=== PATIENT | female | born 1995 | race Caucasian/White ===

== ENCOUNTER 2017-04-16 08:34 | Emergency (ER) | payer BC, OTHER ==
[2017-04-16 08:57] VITALS: BP 130/68
--- NOTE | 2017-04-16 09:02 | EDM.PDOC ---
ED HPI GENERAL MEDICAL PROBLEM - General Chief Complaint: Upper Extremity Injury/Pain Stated Complaint: HURT RT ARM/SHOULDER AREA, LEFT ARM Time Seen by Provider: 04/16/17 08:40 Source of Information: Reports: Patient History Limitations: Reports: No Limitations - History of Present Illness INITIAL COMMENTS - FREE TEXT/NARRATIVE: This 21 yo female patient reports to the ED with generalized aches and pains. The patient reports she is currently experiencing lower back pain, pain in her left forearm and radiating pain to her upper back. The patient reports she is also 14 weeks into her current . The patient reports she was lifting heavy bags of garbage over the weekend and did the laundry over the weekend. The patient reports that she has noticed cramping in her right hand (4th and 5th digits) since yesterday. The patient reports she has been nauseated and vomiting due to her . The patient has not taken anything for her current symptoms. Onset: Gradual Onset Date: 04/14/17 Duration: Constant, Getting Worse Location: Reports: Back, Upper Extremity, Left Quality: Reports: Ache, Dull, Other (cramping) Severity: Moderate Improves with: Reports: None Worsens with: Reports: Movement Context: Reports: Activity Associated Symptoms: Reports: Nausea/Vomiting (due to ) - Related Data Allergies Allergy/AdvReac Type Severity Reaction Status Date / Time No Known Allergies Allergy Verified 04/23/15 09:52 Home Meds: Home Meds PNV95/Ferrous Fumarate/FA [ Tablet] 1 tab PO DAILY 01/22/15 [History] Past Medical History - Past Health History Medical/Surgical History: Denies Medical/Surgical History Social & Family History - Tobacco Use Smoking Status *Q: Never Smoker Second Hand Smoke Exposure: No - Alcohol Use Days Per Week of Alcohol Use: 0 - Recreational Drug Use Recreational Drug Use: No Review of Systems - Review of Systems Review Of Systems: ROS reveals no pertinent complaints other than HPI. ED EXAM, GENERAL - Physical Exam Exam: See Below Exam Limited By: No Limitations General Appearance: Alert, WD/WN, Moderate Distress Eye Exam: Bilateral Eye: EOMI, Normal Inspection, PERRL Ears: Normal External Exam, Normal Canal, Hearing Grossly Normal, Normal TMs Nose: Normal Inspection, Normal Mucosa, No Blood Throat/Mouth: Normal Inspection, Normal Lips, Normal Teeth, Normal Gums, Normal Oropharynx, Normal Voice, No Airway Compromise Head: Atraumatic, Normocephalic Neck: Normal Inspection, Supple, Non-Tender, Full Range of Motion Respiratory/Chest: No Respiratory Distress, Lungs Clear, Normal Breath Sounds, No Accessory Muscle Use, Chest Non-Tender Cardiovascular: Normal Peripheral Pulses, Regular Rate, Rhythm, No Edema, No Gallop, No JVD, No Murmur, No Rub GI/Abdominal: Normal Bowel Sounds, Soft, Non-Tender, No Organomegaly, No Distention, No Abnormal Bruit, No Mass (Female) Exam: Deferred Rectal (Female) Exam: Deferred Back Exam: Decreased Range of Motion, Paraspinal Tenderness Extremities: Normal Inspection, Normal Range of Motion, Non-Tender, Normal Capillary Refill, No Pedal Edema Neurological: Alert, Oriented, CN II-XII Intact, Normal Cognition, Normal Gait, Normal Reflexes, No Motor/Sensory Deficits Psychiatric: Normal Affect, Normal Mood Skin Exam: Warm, Dry, Intact, Normal Color, No Rash Lymphatic: No Adenopathy Course - Vital Signs Last Recorded V/S: Last Vital Signs Temp 37.1 C 04/16/17 08:43 Pulse 92 04/16/17 08:43 Resp 16 04/16/17 08:43 BP 130/68 04/16/17 08:43 Pulse Ox 100 04/16/17 08:43 - Orders/Labs/Meds Labs: Laboratory Tests 04/16/17 04/16/17 Range/Units 08:58 08:58 WBC 11.5 H (5.0-10.0) 10^3/uL RBC 3.98 L (4.2-5.4) 10^6/uL Hgb 12.5 (12.0-16.0) g/dL Hct 36.7 L (37.0-47.0) % MCV 92.2 (80-100) fL MCH 31.4 (27.0-34.0) pg MCHC 34.1 (33.0-35.0) g/dL Plt Count 251 (150-450) 10^3/uL Neut % (Auto) 81.6 H (42.2-75.2) % Lymph % (Auto) 10.3 L (20.5-50.1) % [place] % (Auto) 7.4 (2-8) % Eos % (Auto) 0.5 L (1.0-3.0) % Baso % (Auto) 0.2 (0.0-1.0) % Sodium 133 L (135-145) mmol/L Potassium 3.9 (3.6-5.0) mmol/L Chloride 102 (101-111) mmol/L Carbon Dioxide 21.0 (21.0-31.0) mmol/L Anion Gap 13.9 BUN 11 (7-18) mg/dL Creatinine 0.6 (0.6-1.3) mg/dL Est Cr Clr Drug Dosing TNP Estimated GFR (MDRD) > 60 BUN/Creatinine Ratio 18.33 Glucose 90 (74-105) mg/dL Calcium 8.9 (8.4-10.2) mg/dl Total Bilirubin 0.5 (0.2-1.0) mg/dL AST 16 (10-42) IU/L ALT 14 (10-60) IU/L Alkaline Phosphatase 34 L (42-121) IU/L Total Protein 6.9 (6.7-8.2) g/dl Albumin 3.7 (3.2-5.5) g/dl Globulin 3.2 Albumin/Globulin Ratio 1.16 Departure - Departure Time of Disposition: 09:28 Disposition: Home, Self-Care 01 Condition: Fair Clinical Impression: Strain of muscle, fascia and tendon of lower back, initial encounter - Discharge Information Instructions: Back Pain, Adult, [id number], Muscle Strain, [id number] Forms: ED Department Discharge Care Plan Goals: The patient was advised of the examination and lab results during the visit. The patient was encouraged to take Tylenol as directed for temporary symptom relief. The patient was encouraged to use good body mechanics to avoid lifting and twisting with her back. If the patient has any additional symptoms or concerns, the patient should follow-up with her primary care facility or return to the emergency department.
[2017-04-16 09:24] LABS: CHLORIDE,CL 102 mmol/L (101-111); SODIUM,NA 133 mmol/L (135-145)
== END 2017-04-16 09:36 | disposition home or self-care (01) ==
LOC: DL.ED 08:34
DX: O9A.211 Injury, poisoning and certain other consequences of external causes complicating pregnancy, first trimester (principal); S39.012A Strain of muscle, fascia and tendon of lower back, initial encounter; X50.0XXA Overexertion from strenuous movement or load, initial encounter; Z3A.14 14 weeks gestation of pregnancy
CPT/HCPCS: 36415; 80053; 85025; 99283

== ENCOUNTER 2020-05-29 17:23 | Emergency (ER) | payer SELFPAY ==
[2020-05-29] MEDS ORDERED: Ondansetron 4 MG Tab.DIS PO ONE (17:24)
[2020-05-29 17:47] VITALS: BP 137/97; PULSE 99
--- NOTE | 2020-05-29 18:11 | EDM.PDOC ---
<RavinkenzieJoseian - Last Filed: 05/29/20 18:33> ED HPI GENERAL MEDICAL PROBLEM - General Chief Complaint: Gastrointestinal Problem Stated Complaint: VOMITTING, UNABLE TO KEEP ANYTHING DOWN. [id number]* Time Seen by Provider: 05/29/20 17:55 - Related Data Allergies Allergy/AdvReac Type Severity Reaction Status Date / Time No Known Allergies Allergy Verified 05/29/20 17:34 Home Meds: Home Meds Meclizine [Antivert] 12.5 mg PO TID PRN #12 tab 05/29/20 [Rx] Metoclopramide HCl [Reglan] 10 mg PO Q4H PRN #20 tablet 05/29/20 [Rx] Course - Re-Assessments/Exams Free Text/Narrative Re-Assessment/Exam: 05/29/20 18:33 I saw and evaluated the patient. Discussed with resident and agree with residents findings and plan as documented in the residents note. Departure - Departure Disposition: Home, Self-Care 01 Clinical Impression: Right temporal headache, Dehydration Nausea & vomiting Qualifiers: Vomiting type: unspecified Vomiting Intractability: non-intractable Qualified Code(s): R11.2 - Nausea with vomiting, unspecified - Discharge Information Instructions: Nausea and Vomiting, Adult, Dehydration, Adult, Form - Headache Record Forms: ED Department Discharge Additional Instructions: Use nausea medication (metoclopramide) as needed. Use meclizine at first sign of dizziness. Maintain hydration, drink lots of water. You may alternate 1000 mg Tylenol every hours and 800 mg ibuprofen every 6 hours as needed for headache. Recommend you follow up with your primary care physician. Contact your PCP or return to the emergency department if symptoms return. If you have any loss of vision or blurred/double vision, contact the ED. <Emerson Alexander - Last Filed: 05/29/20 20:13> ED HPI GENERAL MEDICAL PROBLEM - General Source of Information: Reports: Patient History Limitations: Reports: No Limitations - History of Present Illness INITIAL COMMENTS - FREE TEXT/NARRATIVE: Patient is a 24 y/o female who presents to the ED today complaining of headache, vomiting, and vaginal bleeding (spotting). Patient reports onset of headache three days ago. Headache is located over the right scientology/frontal area. She denies any visual changes or photophobia. She denies any loss of vision in the right eye. There is no associated aura. She does have some dizziness if she changes position too quickly. She had an onset of spotting this morning, red blood. LMP was 05/17 (first day). She is sexually active, not on control. Last sexual encounter 2-3 days ago. Spotting is less than a regular period. She does not have a history of midcycle bleeding or irregular cycles. Today she developed nausea and vomiting and is currently unable to keep anything down. She denies any abdominal pain. She reports some sinus congestion which occurred last week with some associated rhinorrhea. Denies any other respiratory symptoms. She tried Benadryl, Sudafed, Tylenol, and ibuprofen all without relief of the headache. She denies any history of migraine but does have a long history of severe intermittent headaches, states she's undergone workup with neurology and has tried different migraine medications which were ineffective. 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 ED EXAM, GI/ABD - Physical Exam Exam: See Below General Appearance: Alert, WD/WN, Mild Distress Eyes: Bilateral: Normal Appearance, EOMI Nose: Normal Inspection. No: Nasal Drainage, Clear Rhinorrhea Throat/Mouth: Normal Inspection, Normal Lips, Normal Teeth, Normal Gums, Normal Oropharynx, Normal Voice, No Airway Compromise Head: Atraumatic, Normocephalic, Facial Tenderness (Tenderness over right scientology.). No: Sinus Tenderness Neck: Normal Inspection, Supple, Non-Tender, Full Range of Motion Respiratory/Chest: No Respiratory Distress, Lungs Clear, Normal Breath Sounds, No Accessory Muscle Use Cardiovascular: Normal Peripheral Pulses, Regular Rate, Rhythm, No Edema, No Gallop, No Murmur, No Rub GI/Abdominal Exam: Normal Bowel Sounds, Soft, Non-Tender, No Organomegaly, No Distention, No Mass. No: Guarding (Female) Exam: Normal External Exam, Normal Speculum Exam. No: Cervical Discharge, Cervical Lesions, Vaginal Bleeding, Vaginal Discharge, Vaginal Lesions, Vaginal Tears Back Exam: Normal Inspection. No: CVA Tenderness (L), CVA Tenderness (R), Vertebral Tenderness Extremities: Normal Inspection, Non-Tender, No Pedal Edema Neurological: Alert, Oriented, CN II-XII Intact, Normal Cognition, Normal Gait, Normal Reflexes, No Motor/Sensory Deficits Psychiatric: Normal Affect, Normal Mood Skin Exam: Warm, Dry, Intact Course - Vital Signs Last Recorded V/S: Last Vital Signs Temp 98.4 F 05/29/20 17:28 Pulse 99 05/29/20 17:28 Resp 18 05/29/20 17:28 BP 137/97 H 05/29/20 17: Pulse Ox 99 05/29/20 17:28 - Orders/Labs/Meds Labs: Laboratory Tests 05/29/20 05/29/20 05/29/20 Range/Units 18:04 18:10 18:10 WBC 9.1 (5.0-10.0) 10^3/uL RBC 4.35 (4.2-5.4) 10^6/uL Hgb 13.2 (12.0-16.0) g/dL Hct 39.9 (37.0-47.0) % MCV 91.7 (80-100) fL MCH 30.3 (27.0-34.0) pg MCHC 33.1 (33.0-35.0) g/dL Plt Count 272 (150-450) 10^3/uL Neut % (Auto) 79.2 H (42.2-75.2) % Lymph % (Auto) 13.8 L (20.5-50.1) % [place] % (Auto) 5.8 (2-8) % Eos % (Auto) 1.0 (1.0-3.0) % Baso % (Auto) 0.2 (0.0-1.0) % ESR (0-20) mm/hr Sodium 141 (136-145) mmol/L Potassium 4.2 (3.5-5.1) mmol/L Chloride 103 (98-107) mmol/L Carbon Dioxide 27 (21-32) mmol/L Anion Gap 15.2 H (7-13) mEq/L BUN 14 (7-18) mg/dL Creatinine 0.90 (0.55-1.02) mg/dL Est Cr Clr Drug Dosing 81.80 mL/min Estimated GFR (MDRD) > 60 BUN/Creatinine Ratio 15.6 (No establ ref range) Glucose 112 H (74-99) mg/dL Calcium 8.8 (8.5-10.1) mg/dL Total Bilirubin 0.4 (0.2-1.0) mg/dL AST 15 (15-37) U/L ALT 30 (14-59) U/L Alkaline Phosphatase 72 (46-116) U/L Total Protein 7.6 (6.4-8.2) g/dL Albumin 4.1 (3.4-5.0) g/dL Globulin 3.5 Albumin/Globulin Ratio 1.2 HCG, Qual Negative Urine Color Yellow (YELLOW) Urine Appearance Slightly cloudy (CLEAR) Urine pH 7.0 (5.0-9.0) Ur Specific [place] 1.025 (1.005-1.030) Urine Protein Trace H (NEGATIVE) Urine Glucose (UA) Negative (NEGATIVE) Urine Ketones 80 H (NEGATIVE) Urine Occult Blood Small H (NEGATIVE) Urine Nitrite Negative (NEGATIVE) Urine Bilirubin Negative (NEGATIVE) Urine Urobilinogen 0.2 (0.2-1.0) mg/dL Ur Leukocyte Esterase Negative (NEGATIVE) Urine RBC 40-50 H /HPF Urine WBC 0-5 (0-5/HPF) /HPF Ur Epithelial Cells Many H (NOT SEEN) /HPF Amorphous Sediment Few (NOT SEEN) /HPF Urine Bacteria Moderate H (0-FEW/HPF) /HPF Urine Mucus Few H (NOT SEEN) /LPF 05/29/20 Range/Units 18:10 WBC (5.0-10.0) 10^3/uL RBC (4.2-5.4) 10^6/uL Hgb (12.0-16.0) g/dL Hct (37.0-47.0) % MCV (80-100) fL MCH (27.0-34.0) pg MCHC (33.0-35.0) g/dL Plt Count (150-450) 10^3/uL Neut % (Auto) (42.2-75.2) % Lymph % (Auto) (20.5-50.1) % [place] % (Auto) (2-8) % Eos % (Auto) (1.0-3.0) % Baso % (Auto) (0.0-1.0) % ESR 16 (0-20) mm/hr Sodium (136-145) mmol/L Potassium (3.5-5.1) mmol/L Chloride (98-107) mmol/L Carbon Dioxide (21-32) mmol/L Anion Gap (7-13) mEq/L BUN (7-18) mg/dL Creatinine (0.55-1.02) mg/dL Est Cr Clr Drug Dosing mL/min Estimated GFR (MDRD) BUN/Creatinine Ratio (No establ ref range) Glucose (74-99) mg/dL Calcium (8.5-10.1) mg/dL Total Bilirubin (0.2-1.0) mg/dL AST (15-37) U/L ALT (14-59) U/L Alkaline Phosphatase (46-116) U/L Total Protein (6.4-8.2) g/dL Albumin (3.4-5.0) g/dL Globulin Albumin/Globulin Ratio HCG, Qual Urine Color (YELLOW) Urine Appearance (CLEAR) Urine pH (5.0-9.0) Ur Specific [place] (1.005-1.030) Urine Protein (NEGATIVE) Urine Glucose (UA) (NEGATIVE) Urine Ketones (NEGATIVE) Urine Occult Blood (NEGATIVE) Urine Nitrite (NEGATIVE) Urine Bilirubin (NEGATIVE) Urine Urobilinogen (0.2-1.0) mg/dL Ur Leukocyte Esterase (NEGATIVE) Urine RBC /HPF Urine WBC (0-5/HPF) /HPF Ur Epithelial Cells (NOT SEEN) /HPF Amorphous Sediment (NOT SEEN) /HPF Urine Bacteria (0-FEW/HPF) /HPF Urine Mucus (NOT SEEN) /LPF Meds: Medications Discontinued Medications Generic Name Dose Route Start Last Admin Trade Name Freq PRN Reason Stop Dose Admin Lactated Ringer's 1,000 mls @ 999 mls/hr 05/29/20 18:46 05/29/20 19:02 Ringers, Lactated IV 05/29/20 19:46 999 mls/hr .BOLUS ONE Administration Ketorolac Tromethamine 30 mg 05/29/20 18:47 05/29/20 19:07 Toradol IVPUSH 05/29/20 18:48 30 mg ONETIME ONE Administration Meclizine HCl 12.5 mg 05/29/20 18:47 05/29/20 19:20 Antivert PO 05/29/20 18:48 12.5 mg ONETIME ONE Administration Metoclopramide HCl 10 mg 05/29/20 18:47 05/29/20 19:03 Reglan IVPUSH 05/29/20 18:48 10 mg ONETIME ONE Administration - Re-Assessments/Exams Free Text/Narrative Re-Assessment/Exam: 05/29/20 18:45 Patient rechecked, informed of negative serum . She reports continued nausea, has vomited a few times in the unit. She states symptoms are manageable if lying completely still. If she moves she feels that the room is 'tilting.' IV started, will admin IVF along with Reglan and Toradol. PO dose of Meclizine. ESR still pending. Free Text/Narrative Re-Assessment/Exam: 05/29/20 19:27 Patient reports symptomatic relief following admin of Reglan and Toradol. IVF infusing. Discussed indication for pelvic exam given unexplained vaginal spotting. Patient consents to exam. Plan to obtain wet prep. Free Text/Narrative Re-Assessment/Exam: 05/29/20 19:55 Discussed results of remainder of workup. ESR negative, wet prep negative. Patient is feeling well enough for discharge. Discussed discharge planning with prescriptions for anti-nausea and vertigo meds. Departure - Departure Time of Disposition: 19:55 Condition: Good - Discharge Information *PRESCRIPTION DRUG MONITORING PROGRAM REVIEWED*: Not Applicable *COPY OF PRESCRIPTION DRUG MONITORING REPORT IN PATIENT AUTUMN: Not Applicable Sepsis Event Note (ED) - Evaluation Sepsis Screening Result: No Definite Risk - Focused Exam Vital Signs: Vital Signs Temp Pulse Resp BP Pulse Ox 05/29/20 17:28 98.4 F 99 18 137/97 H 99 - Assessment/Plan Assessment:: Symptoms suggestive of vertigo syndrome (nausea, vomiting, dizziness, room spinning), along with temporal headache. Labs suggestive of dehydration. Vaginal bleeding likely unrelated, pelvic exam normal and wet prep negative. Patient with good relief of symptoms following medications and IVF in the unit. Ruled out serious electrolyte abnormality, urinary and vaginal infections, , and temporal arteritis. Plan: Patient is discharged to home with prescriptions for Reglan and meclizine. Recommended she follow up with PCP in the near future to address the occurrence of this problem. Discussed return criteria, red flag symptoms. She voices understanding and agreement with this plan. She is discharged home in stable condition.
[2020-05-29 18:37] LABS: ANION GAP 15.2 mEq/L (7-13); CHLORIDE,CL 103 mmol/L (98-107); SODIUM,NA 141 mmol/L (136-145)
[2020-05-29] MEDS ORDERED: Lactated Ringers 1,000 ML IV ONE (18:46)
[2020-05-29] MEDS ORDERED: Metoclopramide 10 MG/2 ML SDV IVPUSH ONE (18:47)
[2020-05-29] MEDS ORDERED: Meclizine 12.5 MG Tab PO ONE (18:47)
[2020-05-29] MEDS ORDERED: Ketorolac 30 MG/ML SDV IVPUSH ONE (18:47)
[2020-05-29] MEDS ORDERED: Ondansetron 4 MG Tab.DIS ONE (20:08)
== END 2020-05-29 20:14 | disposition home or self-care (01) ==
LOC: DL.ED 17:23
DX: E86.0 Dehydration (principal); R11.2 Nausea with vomiting, unspecified; R51.9 Headache, unspecified; N93.9 Abnormal uterine and vaginal bleeding, unspecified
CPT/HCPCS: 36415; 80053; 81001; 84703; 85025; 85651; 87210; 96361; 96374; 96375; 99284; A9270; J1885; J2765; J7120; 99283

== ENCOUNTER 2021-05-19 08:12 | Emergency (ER) | payer OTHER ==
[2021-05-19] MEDS ORDERED: Sodium Chloride 0.9% 1,000 ML IV ONE (08:21)
[2021-05-19] MEDS ORDERED: Ondansetron 4 MG/2 ML SDV IV ONE (08:21)
[2021-05-19 08:26] VITALS: BP 127/83; PULSE 97
[2021-05-19 09:11] LABS: ANION GAP 14.7 mEq/L (7-13); CHLORIDE,CL 101 mmol/L (98-107); SODIUM,NA 137 mmol/L (136-145)
--- NOTE | 2021-05-19 09:49 | EDM.PDOC ---
ED HPI GENERAL MEDICAL PROBLEM - General Chief Complaint: Gastrointestinal Problem Stated Complaint: NAUSUA, HEAD PRESSURE, EAR ACHE LAST 3 OR 4 DAYS Time Seen by Provider: 05/19/21 08:40 Source of Information: Reports: Patient, RN, RN Notes Reviewed History Limitations: Reports: No Limitations - History of Present Illness INITIAL COMMENTS - FREE TEXT/NARRATIVE: Patient is a 25-year-old female who presents to ER with complaint of headache on and off, nausea and vomiting for the past 3 to 4 days. Patient states she is 22 weeks gestation. Patient states when she does have a headache it becomes intense and she is unable to sleep, patient begins to have pain in her ears when the headache comes, does sometimes feel congested at that time. Patient states when she has the headache she is unable to keep any food or drink down, has severe nausea and vomiting. Patient has not seen her primary care provider. Patient states she has been feeling good movement from baby. Denies cough or fever, denies diarrhea. 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 Onset: Gradual Onset Date: 05/15/21 Headache Pain Score (Numeric/FACES): 5 - Related Data Allergies Allergy/AdvReac Type Severity Reaction Status Date / Time No Known Allergies Allergy Verified 05/19/21 08:22 Home Meds: Home Meds Meclizine [Antivert] 12.5 mg PO TID PRN #12 tab 05/29/20 [Rx] Metoclopramide HCl [Reglan] 10 mg PO Q4H PRN #20 tablet 05/29/20 [Rx] Vits #93/Iron Fum/FA [ Formula Tablet] 1 tab PO DAILY 05/12/21 [History] Past Medical History - Past Health History Medical/Surgical History: Denies Medical/Surgical History HEENT History: Reports: Sinusitis, Other (See Below) Other HEENT History: Sikes teeth removed Cardiovascular History: Reports: None Respiratory History: Reports: None Gastrointestinal History: Reports: None Genitourinary History: Reports: None AWAKE OVERNIGHT COUNSELOR History: Reports: Other AWAKE OVERNIGHT COUNSELOR History: MASON 09/18/21 Musculoskeletal History: Reports: None Neurological History: Reports: None Psychiatric History: Reports: None Endocrine/Metabolic History: Reports: None Hematologic History: Reports: None Immunologic History: Reports: None Oncologic (Cancer) History: Reports: None Dermatologic History: Reports: None - Infectious Disease History Infectious Disease History: Reports: Chicken Pox - Past Surgical History Head Surgeries/Procedures: Reports: None Female Surgical History: Reports: Other (See Below) Other Female Surgeries/Procedures: ovarian cysts Social & Family History - Family History Family Medical History: No Pertinent Family History - Tobacco Use Tobacco Use Status *Q: Never Tobacco User - Caffeine Use Caffeine Use: Reports: Coffee, Energy Drinks, Soda, Tea Other Caffeine Use: once a week - Recreational Drug Use Recreational Drug Use: No ED ROS GENERAL - Review of Systems Review Of Systems: Comprehensive ROS is negative, except as noted in HPI. ED EXAM, GENERAL - Physical Exam Exam: See Below Exam Limited By: No Limitations General Appearance: Alert, WD/WN, No Apparent Distress Eye Exam: Bilateral Eye: EOMI, Normal Inspection Ears: Normal External Exam, Normal Canal, Hearing Grossly Normal, Normal TMs Nose: Normal Inspection Throat/Mouth: Normal Inspection, Normal Voice, No Airway Compromise Head: Atraumatic, Normocephalic Neck: Normal Inspection, Supple, Non-Tender, Full Range of Motion Respiratory/Chest: No Respiratory Distress, Lungs Clear, Normal Breath Sounds, No Accessory Muscle Use, Chest Non-Tender Cardiovascular: Normal Peripheral Pulses, Regular Rate, Rhythm, No Edema, No Gallop, No JVD, No Murmur, No Rub Peripheral Pulses: 2+: Radial (L), Radial (R) GI/Abdominal: Normal Bowel Sounds, Soft, Non-Tender (Female) Exam: Deferred Rectal (Female) Exam: Deferred Back Exam: Normal Inspection, Full Range of Motion, NT Extremities: Normal Inspection, Normal Range of Motion, Non-Tender, Normal Capillary Refill, No Pedal Edema Neurological: Alert, Oriented, CN II-XII Intact, Normal Cognition, Normal Gait, Normal Reflexes, No Motor/Sensory Deficits Psychiatric: Normal Affect, Normal Mood Skin Exam: Warm, Dry, Intact, Normal Color, No Rash Lymphatic: No Adenopathy Course - Vital Signs Last Recorded V/S: Last Vital Signs Temp 98.1 F 05/19/21 08:22 Pulse 97 05/19/21 08:22 Resp 20 05/19/21 08:22 BP 127/83 05/19/21 08:22 Pulse Ox 97 05/19/21 08:22 - Orders/Labs/Meds Orders: Active Orders 24 hr Category Date Time Status CULTURE URINE [RM] Stat Lab 05/19/21 08:23 Received Labs: Laboratory Tests 05/19/21 05/19/21 05/19/21 Range/Units 08:23 08:33 08:33 WBC 8.0 (5.0-10.0) 10^3/uL RBC 4.01 L (4.2-5.4) 10^6/uL Hgb 12.4 (12.0-16.0) g/dL Hct 37.1 (37.0-47.0) % MCV 92.5 (80-100) fL MCH 30.9 (27.0-34.0) pg MCHC 33.4 (33.0-35.0) g/dL Plt Count 260 (150-450) 10^3/uL Neut % (Auto) 77.5 H (42.2-75.2) % Lymph % (Auto) 14.2 L (20.5-50.1) % Mckean % (Auto) 6.3 (2-8) % Eos % (Auto) 1.9 (1.0-3.0) % Baso % (Auto) 0.1 (0.0-1.0) % Sodium 137 (136-145) mmol/L Potassium 3.7 (3.5-5.1) mmol/L Chloride 101 (98-107) mmol/L Carbon Dioxide 25 (21-32) mmol/L Anion Gap 14.7 H (7-13) mEq/L BUN 7 (7-18) mg/dL Creatinine 0.66 (0.55-1.02) mg/dL Est Cr Clr Drug Dosing 110.56 mL/min Estimated GFR (MDRD) > 60 BUN/Creatinine Ratio 10.6 (No establ ref range) Glucose 94 (70-99) mg/dL Calcium 8.7 (8.5-10.1) mg/dL Total Bilirubin 0.2 (0.2-1.0) mg/dL AST 12 L (15-37) U/L ALT 19 (14-59) U/L Alkaline Phosphatase 57 (46-116) U/L Total Protein 6.7 (6.4-8.2) g/dL Albumin 3.0 L (3.4-5.0) g/dL Globulin 3.7 Albumin/Globulin Ratio 0.81 Urine Color Yellow (YELLOW) Urine Appearance Slightly cloudy (CLEAR) Urine pH 8.5 (5.0-9.0) Ur Specific [place] 1.025 (1.005-1.030) Urine Protein Negative (NEGATIVE) Urine Glucose (UA) Negative (NEGATIVE) Urine Ketones Negative (NEGATIVE) Urine Occult Blood Negative (NEGATIVE) Urine Nitrite Negative (NEGATIVE) Urine Bilirubin Negative (NEGATIVE) Urine Urobilinogen 0.2 (0.2-1.0) mg/dL Ur Leukocyte Esterase Trace H (NEGATIVE) Urine RBC 0-5 (0-5) /HPF Urine WBC 0-5 (0-5/HPF) /HPF Ur Epithelial Cells Moderate H (NOT SEEN) /HPF Urine Bacteria Moderate H (0-FEW/HPF) /HPF SARS-CoV-2 RNA (HOMERO) (NEGATIVE) 05/19/21 Range/Units 08:52 WBC (5.0-10.0) 10^3/uL RBC (4.2-5.4) 10^6/uL Hgb (12.0-16.0) g/dL Hct (37.0-47.0) % MCV (80-100) fL MCH (27.0-34.0) pg MCHC (33.0-35.0) g/dL Plt Count (150-450) 10^3/uL Neut % (Auto) (42.2-75.2) % Lymph % (Auto) (20.5-50.1) % Mckean % (Auto) (2-8) % Eos % (Auto) (1.0-3.0) % Baso % (Auto) (0.0-1.0) % Sodium (136-145) mmol/L Potassium (3.5-5.1) mmol/L Chloride (98-107) mmol/L Carbon Dioxide (21-32) mmol/L Anion Gap (7-13) mEq/L BUN (7-18) mg/dL Creatinine (0.55-1.02) mg/dL Est Cr Clr Drug Dosing mL/min Estimated GFR (MDRD) BUN/Creatinine Ratio (No establ ref range) Glucose (70-99) mg/dL Calcium (8.5-10.1) mg/dL Total Bilirubin (0.2-1.0) mg/dL AST (15-37) U/L ALT (14-59) U/L Alkaline Phosphatase (46-116) U/L Total Protein (6.4-8.2) g/dL Albumin (3.4-5.0) g/dL Globulin Albumin/Globulin Ratio Urine Color (YELLOW) Urine Appearance (CLEAR) Urine pH (5.0-9.0) Ur Specific [place] (1.005-1.030) Urine Protein (NEGATIVE) Urine Glucose (UA) (NEGATIVE) Urine Ketones (NEGATIVE) Urine Occult Blood (NEGATIVE) Urine Nitrite (NEGATIVE) Urine Bilirubin (NEGATIVE) Urine Urobilinogen (0.2-1.0) mg/dL Ur Leukocyte Esterase (NEGATIVE) Urine RBC (0-5) /HPF Urine WBC (0-5/HPF) /HPF Ur Epithelial Cells (NOT SEEN) /HPF Urine Bacteria (0-FEW/HPF) /HPF SARS-CoV-2 RNA (HOMERO) Negative (NEGATIVE) Meds: Medications Discontinued Medications Generic Name Dose Route Start Last Admin Trade Name Dieudonneq PRN Reason Stop Dose Admin Sodium Chloride 1,000 mls @ 999 mls/hr 05/19/21 08:21 05/19/21 08:36 Normal Saline IV 05/19/21 09:21 999 mls/hr .BOLUS ONE Administration Ondansetron HCl 4 mg 05/19/21 08:21 05/19/21 08:40 Ondansetron 4 Mg/2 Ml Sdv IV 05/19/21 08:22 4 mg ONETIME ONE Administration Departure - Departure Time of Disposition: 10:21 Disposition: Home, Self-Care 01 Condition: Good Clinical Impression: Headache Qualifiers: Headache type: unspecified Headache chronicity pattern: acute headache Intractability: not intractable Qualified Code(s): R51.9 - Headache, unspecified Nausea & vomiting Qualifiers: Vomiting type: unspecified Vomiting Intractability: non-intractable Qualified Code(s): R11.2 - Nausea with vomiting, unspecified Qualifiers: Weeks of gestation: 22 weeks Qualified Code(s): Z3A.22 - 22 weeks gestation of - Discharge Information *PRESCRIPTION DRUG MONITORING PROGRAM REVIEWED*: No *COPY OF PRESCRIPTION DRUG MONITORING REPORT IN PATIENT AUTUMN: No Instructions: Nausea and Vomiting, Adult, [id number], General Headache Without Cause, [id number]-[id number], Sinus Headache, [id number]-[id number] Forms: ED Department Discharge Additional Instructions: May use Tylenol as directed for headache May use Benadryl as directed for headache Drink plenty of water Follow-up with your primary care provider Sepsis Event Note (ED) - Focused Exam Vital Signs: Vital Signs Temp Pulse Resp BP Pulse Ox 05/19/21 08:22 98.1 F 97 20 127/83 97 - My Orders Last 24 Hours: My Active Orders 05/19/21 08:23 CULTURE URINE [RM] Stat - Assessment/Plan Last 24 Hours: My Active Orders 05/19/21 08:23 CULTURE URINE [RM] Stat
== END 2021-05-19 10:30 | disposition home or self-care (01) ==
LOC: DL.ED 08:12
DX: O99.891 Other specified diseases and conditions complicating pregnancy (principal); O21.9 Vomiting of pregnancy, unspecified; R51.9 Headache, unspecified; Z3A.22 22 weeks gestation of pregnancy; Z20.822 Contact with and (suspected) exposure to COVID-19
CPT/HCPCS: 36415; 80053; 81001; 85025; 87086; 87635; 96374; 99284; J2405; J7030; U0002

== ENCOUNTER 2021-08-29 01:11 | Inpatient (IN) | payer OTHER ==
[2021-08-29] MEDS ORDERED: Lactated Ringers 1,000 ML IV ONE (02:20)
[2021-08-29] MEDS ORDERED: Tranexamic Acid 1,000 MG in Sodium Chloride 0.9% 100 ML IV PRN (02:20)
[2021-08-29] MEDS ORDERED: Misoprostol 400 MCG (4 X 100 MCG TAB) RECTAL PRN (02:20)
[2021-08-29] MEDS ORDERED: Carboprost Tromethamine 250 MCG/1 ML Amp IM PRN (02:20)
[2021-08-29] MEDS ORDERED: Lidocaine 1% 30 ML SDV INJECT PRN (02:20)
[2021-08-29] MEDS ORDERED: Methylergonovine 0.2 MG/1 ML Amp IM PRN (02:20)
[2021-08-29] MEDS ORDERED: fentaNYL 100 MCG/2 ML SDV ITHECAL ONE (02:22)
[2021-08-29] MEDS ORDERED: EPINEPHrine 1 MG/ML SDV ONE ×2 (02:22→07:37)
[2021-08-29] MEDS ORDERED: Oxytocin/Normal Saline 30 UNIT/500 ML BAG IV SCH (02:30)
[2021-08-29] MEDS ORDERED: Lactated Ringers 1,000 ML IV SCH (02:30)
--- NOTE | 2021-08-29 03:01 | OBOUT ---
DATE: 08/29/2021 DATE AND TIME OF NST: 08/29/2021, 1:30 to 1:50. REASON FOR NST: 1. Intrauterine 37-1/7 weeks by 7-5/7-week ultrasound. 2. Active labor. 3. Group B streptococcus. 4. History of fast labors and deliveries. 5. G3, P2-0-0-2. NST INTERPRETATION: During this time period, tone baseline is approximately 130 to 135 and at least two 15 x 15 beats per minute accelerations making this strip reactive as well as reassuring. Tocometer reveals potential 7 contractions during this time period, felt by patient. ASSESSMENT AND PLAN: 1. Nonstress test-reactive and reassuring. 2. Tocometer reveals contractions. PLAN: Please see admit history and physical for further details. At current time of dictation, waiting COVID test before admitting her to a regular room. [facility] /[id number]
--- NOTE | 2021-08-29 03:46 | HP ---
PATIENT IDENTIFICATION: Nisa Nolan is a 25-year-old G3, P2-0-0-2, intrauterine at 37-1/7 weeks by 7-5/7 week ultrasound, who presents with contraction. HISTORY OF PRESENT ILLNESS: The patient states contractions have been going on all throughout the day on 08/28/2021 until the office secretary of 08/29/2021. Around midnight, started increasing in frequency and intensity to a point that they are coming every couple of minutes, felt in the lower abdomen, radiating to the back, rated 6 to 7 out of 10, and severe enough that she is breathing through them. She presents to the hospital. To put this in context, she has a history of fast labors and deliveries as well as being GBS negative. Denies any spotting, bleeding, or leaking. Records called for, reviewed as below, and supplemented by patient history. ALLERGIES: Seasonal allergies noted. No medication allergies. MEDICATION: vitamins. PAST MEDICAL/PAST SURGICAL HISTORY: Remarkable for kidney stones in the past as well as had some wisdom teeth removed in 2016, lithotripsy of the kidney with stent placed and then removed with cystoscopy in 10/2018, and IUD history back in 02/2019, none present during this . She also had chickenpox as a child. FAMILY HISTORY: Asthma and diabetes in a brother. Hypertension in maternal grandfather. Multiple births in the maternal grandmother and paternal grandmother. Negative family history of defects, anesthesia problems, bleeding problems, thyroid disease, cancer, cystic fibrosis, labor, depression, bipolar disorder, inflammatory bowel disease. SOCIAL HISTORY: The patient lives in the [place] area with , his son, and her son and daughter. They have 2 guinea pigs in the household. She denies any alcohol, tobacco, or drug use. REVIEW OF SYSTEMS: Otherwise reviewed and notable for cold air causing sinus issues at times. OBJECTIVE: Vital Signs: Blood pressure was 133/81, the patient is afebrile, heart rate by central exam was 80 to 100, when monitoring was 115, temperature was 97.8. Appearance: Female appears stated age, acting appropriate. Nontoxic appearance. Breathing through her contractions, but answering questions appropriately in between. HEENT: Head: Atraumatic. EOMs intact. PERRLA. No scleral icterus. No obvious otorhinorrhea. Mucous membranes moist. Neck: No obvious tenderness. Lungs: Clear to auscultation bilaterally. No increased work of breathing. Heart: S1, S2. Regular rate and rhythm. Abdomen: Gravid, Darren's indeterminate, nontender, nondistended. Bowel sounds positive. No organomegaly, pulsatile masses, or obvious hernias. No rebound, rigidity, or guarding. : Normal external female genitalia. Normal position and presentation of urethra. Vaginal exam reveals her to be 4+ cm, 75% effaced, -1 and -2 station, vertex suspected, and bag of water felt. Extremities: No peripheral edema. Deep tendon reflexes 2 to 3 out of 4 bilaterally and symmetric in extremities. Psychiatric: Mood and affect congruent. Judgment and insight intact. Skin: No cyanosis, clubbing, or jaundice. LABORATORY DATA: White cell count 8.5, hemoglobin 11.2, platelets 198. heart tones currently in the 120s to 130s range baseline with reassuring strip. Tocometer reveals contractions every 2 to 3 minutes. ASSESSMENT: 1. Intrauterine at 37-1/7 weeks by 7-5/7 week ultrasound. 2. Active labor with contractions and cervical change. Nurse noted her to be 3 to 4 cm upon admission. Now, she is 4+ cm within less than an hour, and has history of fast labors and deliveries. The patient will be admitted. 3. Group B Streptococcus negative. 4. History of fast labors and deliveries. 5. G3, P2-0-0-2. PLAN: Currently, awaiting COVID test. Will admit her to a room and then follow clinically and closely thereafter. She has inquired about artificial rupture of membranes and we will re-evaluate once she is admitted into a room. [facility] /[id number]
[2021-08-29] MEDS ORDERED: fentaNYL 100 MCG/2 ML SDV IVPUSH PRN (05:23)
[2021-08-29] MEDS ORDERED: Calcium Carbonate 500 MG Tab.Chew PO ONE (07:29)
[2021-08-29] MEDS ORDERED: fentaNYL 100 MCG/2 ML SDV ONE (07:37)
[2021-08-29] MEDS: Ondansetron 4 MG/2 ML SDV IVPUSH PRN ×2 (07:38→12:47)
--- NOTE | 2021-08-29 08:55 | PCM.PRNOTE ---
- Free Text/Narrative Note: Requested to provide analgesia to full term patient in severe pain. Upon entering the room, patient is sitting on edge of bed complaining of severe abdominal/pelvic pain and discomfort. Procedure was discussed with patient including adverse outcomes and expectations. Pt consented to analgesia, SAB/IT. Pt placed into a proper sitting position. Landmarks for SAB/IT were identified and marked. Hands were washed and appropriate PPE was applied. Back was prepped with betadine x3. A sterile, transparent, fenestrated drape was applied. Excess betadine was removed. Using 3 mL of a 1% lidocaine solution, a skin wheel was placed at the L2/L3 interspace. A 24 ga (4 inch) Pencan spinal needle was inserted until positive for CSF. Negative for heme or paresthesias. Injected fentanyl 30 mcg, sufentanil 25 mcg, and 7.5 mg of a 0.75% bupivacaine solution with an epi wash. Pt was placed left lateral tilt position for approximately 20 minutes. There were zero complications or adverse outcomes. Will continue to monitor. Procedure Date & Time: 08-29-21 [id number]
[2021-08-29] MEDS ORDERED: ceFAZolin 2 GM in Premix Bag 1 BAG IV ONE (09:50)
[2021-08-29] MEDS ORDERED: Benzocaine/Menthol 20%-0.5% Spray 78 GM Cannister TOP PRN (09:52)
[2021-08-29] MEDS ORDERED: Oxytocin 10 Units/1 ML SDV IM PRN (09:52)
[2021-08-29] MEDS ORDERED: Zolpidem 5 MG Tab PO PRN (09:52)
[2021-08-29] MEDS ORDERED: Simethicone 80 MG Tab.Chew PO PRN (09:52)
[2021-08-29] MEDS: Ibuprofen 800 MG Tab PO PRN ×2 (12:44→22:19)
[2021-08-29] MEDS: Acetaminophen 325 MG Tab PO PRN ×2 (17:45→23:12)
[2021-08-29] MEDS: ceFAZolin 1 GM in Sodium Chloride 0.9% 50 ML IV SCH (17:46)
[2021-08-30] MEDS: ceFAZolin 1 GM in Sodium Chloride 0.9% 50 ML IV SCH ×2 (02:08→10:43)
[2021-08-30] MEDS: Acetaminophen/oxyCODONE 325-5 MG Tab PO PRN ×2 (02:32→20:21)
--- NOTE | 2021-08-30 07:07 | PN ---
DATE: 08/29/2021 SUBJECTIVE: The patient's contractions are getting stronger. Her COVID test came back negative. OBJECTIVE: heart tones in the 130s range. The patient is breathing through her contractions which are coming every couple of minutes. Tocometer does reveal contractions with evaluation. Vaginal exam reveals her to be 4+ cm, 75% effaced, -1 station, vertex suspected. Artificial rupture of membranes done after discussion with the patient. ASSESSMENT/PLAN: Intrauterine at 37-1/7 weeks by 7-5/7 week ultrasound, admitted in active labor with history of fast labors, deliveries, and GBS negative. -0-0-2, now status post artificial rupture of membranes. We will continue to follow clinically and closely. The patient is interested in intrathecal and will be offering this when she is ready for one and requesting further pain management. She denies any at this point in time. [facility] /[id number]
--- NOTE | 2021-08-30 07:13 | DEL ---
DATE: 08/29/2021 PREOPERATIVE DIAGNOSES: 1. Intrauterine at 37-1/7 weeks by 7-5/7 week ultrasound. 2. Active labor. 3. Group B Streptococcus negative. 4. History of fast labors and deliveries. 5. G3, P2-0-0-2. POSTOPERATIVE DIAGNOSES: 1. Intrauterine at 37-1/7 weeks by 7-5/7 week ultrasound, delivered. 2. Active labor. 3. Group B Streptococcus negative. 4. History of fast labors and deliveries. 5. G3, P2-0-0-2. 6. Velamentous/weak cord insertion suspected with a cord avulsion noted requiring bimanual exam and finger uterine curettage of the uterine lining. 7. Nuchal cord times one reduced bluntly with delivery PROCEDURES PERFORMED: Nonstress test, artificial rupture of membranes, Pitocin augmentation, and then subsequent spontaneous vaginal delivery with bimanual exam with finger uterine curettage to remove placenta and membranes. ANESTHESIA/ANALGESIA: The patient did receive an intrathecal in the first stage of labor. FINDINGS: Female. score 9 and 10. Placenta where cord inserted revealed membranous type insertion with avulsion and weak cord over this area. ESTIMATED BLOOD LOSS: 300 mL. SUMMARY OF EVENTS: The patient is a 25-year-old G3, P2-0-0-2 intrauterine at 37-1/7 weeks by 7-5/7 week ultrasound, admitted in active labor with contractions and cervical change with history of fast labors and deliveries and living far from the hospital. She changed her cervix over an hour period. Subsequently, was admitted. Underwent artificial rupture of membranes. Contractions did slow. Did require some Pitocin augmentation and then was found to be around 5 cm, was given an intrathecal, and within approximately 2 hours of that, she was found to be complete and started pushing. I was called to the room, donned sterile gown and gloves as she entered the second stage of labor. Jain type catheter was introduced and drained approximately 20 to 30 mL of clear colored urine. This was subsequently removed and the patient continued pushing with contractions. vertex was delivered in JAVAD presentation with nuchal cord x1, reduced bluntly at delivery followed by anterior and posterior shoulders as well as rest of the without difficulty. Mouth and nares were suctioned. Cord was doubly clamped, cut, and was resuscitated on mother's abdomen. Then, approximately 10 mL cord blood was obtained for labs. Placenta was then attempted to be delivered with gentle cord traction and fundal massage. Cord avulsed and was very weak with only mild pulling on the cord. Avulsion was noted. Exam did reveal with partial avulsion weak attachment point to the placenta. It was started anterior of the vaginal area. Subsequently, did discuss this with the patient. Intrathecal had good anesthesia, and subsequently bimanual exam with finger uterine curettage was done to remove placenta and placental membranes with 2 passes. Placenta was then examined. Did reveal a weak cord insertion, membranous type insertion with suspected velamentous versus weak cord insertion to the placenta. This was discussed with the patient. Perineum, vagina, and perirectal areas were examined without any tears or lacerations. Ancef will be given. Mother and infant are currently stable at time of dictation. [facility] /[id number] SIMONE
[2021-08-30] MEDS: Ibuprofen 800 MG Tab PO PRN ×2 (08:23→19:07)
[2021-08-30] MEDS: Docusate Sodium 100 MG Cap PO PRN ×2 (08:23→19:09)
[2021-08-30] MEDS: Prenatal Multivitamin with Calcium/Folic Acid/Iron Tab PO SCH (08:23)
--- NOTE | 2021-08-30 08:37 | PN ---
DATE: 08/30/2021 day #1. SUBJECTIVE: The patient was tolerating p.o. and was ambulating, urinating, and passing flatus. Pain was controlled. Bleeding was decreasing. OBJECTIVE: Vitals: Temperature 98.4, heart rate 87, blood pressure 124/58, and respiratory rate 16. Lungs: Clear to auscultation bilaterally. Heart: S1 and S2. Regular rate and rhythm. Abdomen: Firm uterus around the umbilicus. Extremities: No peripheral edema. No calf pain. LABORATORY DATA: White cell count 7.7; hemoglobin 11.5, stable compared to a predelivery hemoglobin of 11.2; and platelets of 202. ASSESSMENT: day #1 status post spontaneous vaginal delivery with bimanual examination and finger uterine curettage with velamentous/weak cord insertion with cord avulsion noted with delivery of the placenta requiring the above. PLAN: We will continue to follow clinically and closely. Ancef was ordered. Please see orders for further details. Possible discharge tomorrow. Otherwise, we will need to follow closely. [facility] /[id number]
[2021-08-31] MEDS: Ibuprofen 800 MG Tab PO PRN (05:46)
[2021-08-31 08:30] VITALS: BP 113/74; PULSE 102
--- NOTE | 2021-08-31 08:48 | DISCH ---
ADMITTING DIAGNOSES: 1. Intrauterine at 37 and 1/7th weeks by 7 and 5/7 weeks ultrasound. 2. Active labor. 3. GBS negative. 4. History of fast labors in delivery, lives far from the hospital. 5. G3, P2-0-0-2. DISCHARGE DIAGNOSES: 1. Intrauterine at 37 and 1/7th weeks by 7 and 5/7 weeks ultrasound - delivered. 2. Active labor. 3. GBS negative. 4. History of fast labors in delivery, lives far from the hospital. 5. G3, P2-0-0-2. 6. Velamentous/weak cord insertion to placenta with avulsion noted with delivery, requiring bimanual exam and finger uterine curettage for removal. 7. Nuchal cord x1, reduced bluntly at delivery. PROCEDURE PERFORMED: NST, artificial rupture membranes, Pitocin augmentation, and spontaneous vaginal delivery with bimanual exam and finger uterine curettage per Dr. Sharma on date of admission. HISTORY OF PRESENT ILLNESS: Please see H and P. SUMMARY OF HOSPITAL COURSE: The patient was admitted on the above date with the above diagnosis in active labor. Underwent above procedures, then went on to have a spontaneous vaginal delivery, yielding a female, score 9 and 10, weighing 3311 g (7 pounds 5 ounces). This was complicated by a velamentous/weak cord insertion with avulsion noted with delivery requiring bimanual exam with finger uterine curettage for removal of placenta. Postprocedure antibiotics were given. No signs or symptoms of infection noted. There was also nuchal cord x1, reduced bluntly at delivery. day #1, please see progress note. day #2, date of discharge, the patient was tolerating p.o., ambulating, urinating, passing flatus, requesting discharge. PHYSICAL EXAMINATION: Vital Signs: Last set of vitals, temperature 98.4, heart rate 82, blood pressure 129/81, and respiratory rate 18. Lungs: Clear to auscultation bilaterally. Heart: S1, S2. Regular rate and rhythm. Firm uterus around the umbilicus. No peripheral edema. No calf pain. Hemoglobin day #1 was 11.5, compared to predelivery hemoglobin 11.2. CONDITION ON DISCHARGE COMPARED TO CONDITION ON ADMISSION: Improved. DISCHARGE INSTRUCTIONS: 1. Diet: As tolerated. 2. Activity: No lifting more than 20 pounds. No sit-ups, straining. Pelvic rest for next 6 weeks with immediate return to fertility discussed with patient. 3. Reasons to return or go to the emergency room discussed with the patient in detail including but not limited to temperature greater than 100.4; foul- smelling discharge; red, hot, or tender breasts; or increased vaginal bleeding. DISCHARGE MEDICATIONS: [id number] ibuprofen for pain. vitamins while and breast pump script was also given. FOLLOWUP: 6 weeks . I did discuss with the patient in the interim reasons to return or go to the emergency room in regard to her baby as well. Please see discharge paperwork for further details. [facility] /[id number] SIMONE
[2021-08-31] MEDS: Prenatal Multivitamin with Calcium/Folic Acid/Iron Tab PO SCH (09:28)
[2021-08-31] MEDS: Docusate Sodium 100 MG Cap PO PRN (09:28)
[2021-08-31] MEDS: Acetaminophen/oxyCODONE 325-5 MG Tab PO PRN (09:29)
== END 2021-08-31 11:15 | disposition home or self-care (01) | DRG 807 ==
LOC: DL.OBCHECK 01:11 → DL.OB 02:21 → UNDOADMOB 02:21 → DL.OB 02:21 → UNDODISOB 08-31 11:15
PROVIDERS: ADMIT Family Medicine; ATTEND Family Medicine
PROC: 10E0XZZ Delivery of Products of Conception, External Approach (ICD-10-PCS; principal; 2021-08-29)
PROC: 10907ZC Drainage of Amniotic Fluid, Therapeutic from Products of Conception, Via Natural or Artificial Opening (ICD-10-PCS; 2021-08-29)
PROC: 3E0R3BZ Introduction of Anesthetic Agent into Spinal Canal, Percutaneous Approach (ICD-10-PCS; 2021-08-29)
PROC: 00HU33Z Insertion of Infusion Device into Spinal Canal, Percutaneous Approach (ICD-10-PCS; 2021-08-29)
DX: O43.123 Velamentous insertion of umbilical cord, third trimester (principal); Z37.0 Single live birth; O69.81X0 Labor and delivery complicated by cord around neck, without compression, not applicable or unspecified; Z3A.37 37 weeks gestation of pregnancy; Z20.822 Contact with and (suspected) exposure to COVID-19; Z28.82 Immunization not carried out because of caregiver refusal
CPT/HCPCS: 36415; 59025; 59409; 85027; A9270-GY; J0171; J0690; J2405; J2590; J3010; J7120; U0002

== ENCOUNTER 2021-09-13 11:52 | Emergency (ER) | payer OTHER ==
[2021-09-13 13:15] LABS: SODIUM,NA 140 mmol/L (136-145)
[2021-09-13 13:19] VITALS: BP 143/84; PULSE 114
[2021-09-13 13:40] LABS: ANION GAP 17.3 mEq/L (7-13); CHLORIDE,CL 103 mmol/L (98-107)
[2021-09-13] MEDS ORDERED: Iopamidol 612 MG/ML 100 ML Bottle IVPUSH ONE (14:14)
== END 2021-09-13 15:40 | disposition home or self-care (01) ==
LOC: DL.ED 11:52
DX: R10.11 Right upper quadrant pain (principal); R10.12 Left upper quadrant pain
CPT/HCPCS: 36415; 74177; 80053; 82150; 83605; 83690; 85025; 87040; 99284-25; Q9967